=== PATIENT | female | born 1990 | race Caucasian/White ===

== ENCOUNTER 2017-08-13 06:30 | Day surgery (SDC) | payer OTHER | END 2017-08-13 09:55 | disposition home or self-care (01) | LOC: AMB-ENDOS 06:30 → LAB 08:15 → AMB-ENDOS 09:55 | DX: A08.8 Other specified intestinal infections (principal); R10.84 Generalized abdominal pain; K52.89 Other specified noninfective gastroenteritis and colitis; Z12.12 Encounter for screening for malignant neoplasm of rectum ==